=== PATIENT | male | born 1990 | race African-American/Black ===

== ENCOUNTER 2020-08-16 13:14 | Emergency (ER) | payer OTHER ==
[~2020-08-16] VITALS: Ht 180.3 cm; Wt 86.2 kg
[2020-08-16] MEDS ORDERED: NOVOLOG100 UNIT/M SUBQ (13:23)
[2020-08-16 13:42] LABS: ABSOLUTE NEUTROPHILS 6.7 thou/uL (1.4-8.2); HEMOGLOBIN 16.7 gm/dL (14.0-18.0)
[2020-08-16 13:44] LABS: BASOPHILS 0.1 % (0.0-2.0); EOSINOPHILS 0.1 % (0.0-3.0); HEMATOCRIT 50.5 % (42.0-52.0); LYMPHOCYTES 5.2 % (24.0-44.0); MCHC 33.1 g/dL (28.0-37.0); MCV 93.6 fL (80.0-100.0); MONOCYTES 2.1 % (1.0-8.0); PLATELET COUNT 236 thou/uL (150-400); POLYS 92.5 % (36.0-66.0); RDW 12.6 % (10.5-14.5); WBC 7.3 thou/uL (4.0-11.0)
[2020-08-16 13:58] LABS: ANION GAP 14 mmol/L (7-16); BUN 11 mg/dL (7-18); CALCIUM 9.8 mg/dL (8.5-10.1); CHLORIDE 103 mmol/L (98-107); CO2 27 mmol/L (21-32); CREATININE 1.1 mg/dL (0.7-1.3); GLUCOSE 84 mg/dL (74-106); SODIUM 144 mmol/L (136-145)
[2020-08-16 14:06] LABS: ALBUMIN 4.5 g/dL (3.4-5.0); SGOT 30 U/L (15-37); SGPT 24 U/L (16-63); TOTAL BILIRUBIN 1.4 mg/dL (0.2-1.0); TOTAL PROTEIN 9.1 g/dL (6.4-8.2); TROPONIN-I <0.06 ng/mL (<0.06)
--- NOTE | 2020-08-16 15:31 | EKG ---
[address] [place] [address] ELECTROCARDIOGRAM REPORT Name: CY PERSAUD Room #: REG [facility]ITAL[facility]orencioFlorencio#: [id number] Admission: 08/16/20 Attend Phys: Discharge: Date of : 89 Report #: [id number] [facility] ED Test Date: 2020-08-16 Test Time: 13:18:41 Pat Name: CY PERSAUD Department: Room: Gender: M Pathology Technician: KAUR : 1990 Requested By: Twyla Adkins Order Number: [id number] MD: Tomas Elias Measurements Intervals [place] Rate: 56 P: 22 IA: 135 QRS: 72 QRSD: 89 T: 43 QT: 429 QTc: 415 Interpretive Statements Sinus rhythm Baseline wander in lead(s) II,III,aVF No previous ECG available for comparison Electronically Signed On 08-16-2020 15:31:18 CDT by Tomas Elias [email or web address] <ELECTRONICALLY SIGNED> By: Tomas Elias MD, [facility] 08/16/20 1531 1318 1318 Tomas Elias MD, FACC /EPI
[2020-08-16] MEDS ORDERED: POTASSIUM20 PO ×2 (16:25)
[2020-08-16 16:33] VITALS: BP 133/62
== END 2020-08-16 16:33 | disposition home or self-care (01) ==
LOC: ER 13:14
PROVIDERS: Physician Assistant
DX: E10.649 Type 1 diabetes mellitus with hypoglycemia without coma (principal); E87.6 Hypokalemia; S40.211A Abrasion of right shoulder, initial encounter; S80.811A Abrasion, right lower leg, initial encounter; X58.XXXA Exposure to other specified factors, initial encounter; Y93.89 Activity, other specified; Y92.89 Other specified places as the place of occurrence of the external cause; Y99.8 Other external cause status